=== PATIENT | female | born 1970 | race Two or more races ===

== ENCOUNTER 2018-08-28 22:49 | Emergency (ER) | payer OTHER ==
[~2018-08-28] VITALS: Ht 170.2 cm; Wt 215.5 kg
[2018-08-28] MEDS ORDERED: [UNRECOGNIZED DRUG - OTHER] (23:31)
[2018-08-28] MEDS ORDERED: ADVIL100 M1 (23:31)
[2018-08-29] MEDS ORDERED: MOTRIN IB200 MG PO ×2 (00:42)
[2018-08-29] MEDS ORDERED: CEFUROXIME500 MG PO (00:42)
== END 2018-08-29 00:57 | disposition home or self-care (01) ==
LOC: ER 22:49
DX: K08.89 Other specified disorders of teeth and supporting structures (principal)